=== PATIENT | male | born 1940 | race Caucasian/White ===

== ENCOUNTER 2017-08-04 08:50 | Emergency (ER) | payer MEDICARE ==
--- NOTE | 2017-08-04 11:17 | RAD ---
LEFT SHOULDER 3 VIEWS: HISTORY: A 77-year-old male with a history of left shoulder pain since this morning. Bilateral shoulder repla cements 10 years ago. COMPARISON: Chest 1 view 02/24/16, PET CT scan 08/01/16. FINDINGS: There are status post left shoulder replacement changes. There is marked abnormal widening of the sh oulder joint space with some tiny calcific opacity changes within this widened space. This widened s pace has markedly worsened from the 2016 study and the fairly extensive destructive changes of the sc apula and glenoid as well as the medial aspect of the proximal humeral shaft were all present at the time of the 08/01/[address] scan. This area in the shoulder demonstrated marked abnormal increased ac tivity. No evidence for acute fracture or dislocation. IMPRESSION: Markedly abnormal left shoulder with total humeral head replacement changes with marked destructive c hanges of the glenoid and scapula as well as the medial aspect of the proximal humerus with some tiny calcific foci within this abnormally widened space, probably secondary to particle disease or other post-prosthesis complication which is certainly favored over infection given the longstanding chronic ity of this. There is no acute fracture or dislocation. Orthopedic followup is certainly recommende d in this regard. POS: [facility]
== END 2017-08-04 10:55 | disposition home or self-care (01) ==
LOC: SCSER 08:50
DX: T84.89XA Other specified complication of internal orthopedic prosthetic devices, implants and grafts, initial encounter (principal); G89.29 Other chronic pain; I10 Essential (primary) hypertension; F41.9 Anxiety disorder, unspecified; F32.9 Major depressive disorder, single episode, unspecified; Z87.891 Personal history of nicotine dependence
CPT/HCPCS: 96374; 96376; J2270

== ENCOUNTER 2017-08-11 16:35 | Emergency (ER) | payer MEDICARE ==
[2017-08-11] MEDS ORDERED: HYDROcodone/Acetaminophen 10/325 mg Tablet ONE (17:06)
--- NOTE | 2017-08-11 18:50 | RAD ---
LEFT SHOULDER THREE VIEWS: 08/11/17 HISTORY: Left shoulder pain. History of previous surgery. COMPARISON: A 08/04/17 examination. Postoperative changes with placement of a left humeral prosthesis is noted. There is chronic appearin g destructive change involving the glenoid which at this point is essentially absent. Surgical clips are seen in this region. The space between the bone and humeral component of the prosthesis is widene d. This would suggest that there is some underlying effusion present. Overall appearance is stable as compared to the 08/04/17 study. IMPRESSION: Left humeral prosthesis in place. The lytic bony change along the medial aspect of the proximal humer al shaft and the chronic appearing destructive bony changes of the glenoid with a widened glenohumera l joint space are all stable findings as compared to the prior exam. These changes could indicate chr onic synovial changes. Underlying infection is not excluded. The possibility that the widened space i s related to joint effusion should be considered but it appears to be a fairly chronic finding as dis cussed in the previous report. The widening to the joint space was also seen on a previous PET scan d one in July. POS: [facility]
== END 2017-08-11 18:15 | disposition home or self-care (01) ==
LOC: SCSER 16:35
DX: M25.512 Pain in left shoulder (principal); F41.9 Anxiety disorder, unspecified; I10 Essential (primary) hypertension; F32.9 Major depressive disorder, single episode, unspecified; Z77.22 Contact with and (suspected) exposure to environmental tobacco smoke (acute) (chronic); Z79.891 Long term (current) use of opiate analgesic

== ENCOUNTER 2017-08-31 08:38 | Outpatient (CLI) | payer MEDICARE ==
--- NOTE | 2017-08-31 13:37 | RAD ---
FLUOROSCOPIC GUIDED RIGHT SHOULDER JOINT ASPIRATION. CLINICAL HISTORY: Pain. History of prior right shoulder arthroplasty placement. RADIATION EXPOSURE DATA: 3 mGy*^m2, 0.2 minutes intermittent fluoroscopy. PROCEDURE: Informed consent was obtained. The patient was escorted to the procedure suite and customer account administrator imaging of the right shoulder was performed. Topical anesthesia was achieved with buffered 1% Lidocaine following appropriate standard sterile pre pping and draping of the right shoulder. Uneventful accessed into the right shoulder joint was achie rebeca with a 22 gauge needle under fluorosocpic guidance which yielded approximately 4 cc of opaque amb er-colored, turbid aspirate. This was placed into a sealed sterile container and sent [facility] the [facility] further [facility]. Imaging was stored for documentation. The needle was removed from the pat ient. There were no procedural complications. FINDINGS: [facility] imaging of the right shoulder reveals evidence of osseous lucency within the region of the scap ular glenoid which is expanded as a result with a surrounding sclerotic rim. The right humeral prost hesis is high-riding and underlies the undersurface of the acromion within approximately 3-4 mm. Par tially imaged right chest port is present. IMPRESSION: Technically successful fluoroscopic-guided right shoulder joint aspiration yielding aspirate as discu ssed above which was sent to the laboratory for further analysis. POS: [facility]
--- NOTE | 2017-08-31 13:41 | RAD ---
FLUOROSCOPIC GUIDED LEFT SHOULDER JOINT ASPIRATION. CLINICAL HISTORY: Left shoulder pain. Prior prosthesis of the left shoulder with clinical concern for infection. RADIATION EXPOSURE DATA: 3 mGy*^m2; 0.2 minutes intermittent fluoroscopy. PROCEDURE: Informed consent was obtained. The patient was escorted to the procedural suite. [facility] imaging of t he left shoulder was performed. Standard sterile prepping and draping of the left shoulder was perfo rmed followed by topical anesthesia achieved with buffered 1% Lidocaine. A 22-gauge needle was then advanced uneventfully into the left shoulder joint confirmed fluoroscopically. Approximately 3 cc of turbid dark maroon aspirate was obtained. This was placed into a sealed sterile container and sent to the laboratory for further analysis. The needle was removed. No procedural complication is prese nt. Imaging was stored for documentation. FINDINGS: [facility] imaging was performed which reveals abnormal focal lucency of the proximal metaphysis of the me dial left humerus. There is abnormal space located between the humeral head prosthesis and the nativ e proximal humeral metaphysis. There is also abnormal irregularity and lucency with surrounding scle rosis and splaying of the scapular glenoid. The glenoid component of the prosthesis is abnormally el evated. IMPRESSION: Technically successful left shoulder joint aspiration yielding aspiration sample as discussed above. This was sent to the laboratory for further analysis. Laboratory results are pending. POS: [facility]
== END 2017-08-31 08:39 | disposition home or self-care (01) ==
LOC: RAD 08:38
DX: T84.84XA Pain due to internal orthopedic prosthetic devices, implants and grafts, initial encounter (principal); Z96.611 Presence of right artificial shoulder joint; Z96.612 Presence of left artificial shoulder joint
CPT/HCPCS: 20610; 77002; 87070; 87205

== ENCOUNTER 2018-01-09 11:23 | Observation (INO) | payer MEDICARE ==
[2018-01-09 12:18] LABS: Mean Corpuscular HGB CONC 35.5 g/dL (32.0-36.0); Mean Corpuscular Hemoglobin 31.7 pg (27.0-31.0); Mean Corpuscular Volume 89.3 fL (78.0-98.0); Platelet Count 196 thou/uL (130-400); RBC Distribution Width 12.8 % (11.5-14.5); Red Blood Cell (RBC) Count 4.12 mill/uL (4.70-6.10); White Blood Cell (WBC) Count 4.8 thou/uL (4.8-10.8)
[2018-01-09 12:54] LABS: Band 2 % (5-11); Eosinophils 6 % (0-10); Lymphocytes 24 % (21-51); MDiff Complete? YES; Monocytes 10 % (0-10); Neutrophil 58 % (42-75); RBC Morphology Normal
[2018-01-09 14:36] LABS: Bilirubin Negative (Negative); Blood, Urine Negative (Negative); Clarity CLEAR (Clear); Glucose, Urine (Dipstick) Negative (Negative); Leukocyte Negative (Negative); Nitrite Negative (Negative); Protein, Urine (Dipstick) Negative (Neg-Trace); Specific Gravity, Urine 1.023 (1.002-1.036); Urobilinogen 0.2 mg/dL (0.2-1.0)
[2018-01-09 14:49] LABS: PTT 24.5 SEC (22.9-36.1)
[2018-01-09 14:54] LABS: Prothrombin Time 12.9 SEC (12.0-14.7)
[2018-01-09] MEDS ORDERED: Acetaminophen 325 MG TAB PO PRN (16:32)
[2018-01-09] MEDS ORDERED: Ondansetron ODT 4 MG TAB SL PRN (16:32)
[2018-01-09] MEDS ORDERED: Ondansetron HCl/PF 4 MG/2 ML Vial IVP PRN ×2 (16:32→23:10)
[2018-01-09] MEDS ORDERED: Fleet Enema 133 ML BOT PR SCH (17:00)
[2018-01-09 17:18] LABS: Hemoglobin 13.1 g/dL (14.0-18.0)
[2018-01-09 17:28] VITALS: BMI 31.6
[2018-01-09] MEDS ORDERED: Promethazine HCl 25 MG/ML VIAL IM PRN (23:10)
[2018-01-09] MEDS ORDERED: Promethazine HCl 25 MG/ML VIAL SLOW IVP PRN (23:10)
[2018-01-09] MEDS ORDERED: GoLYTELY 4,000 ml Bottle PO SCH (23:15)
--- NOTE | 2018-01-10 00:01 | HP ---
DATE OF ADMISSION: 01/09/2018 REASON FOR ADMISSION: Bloody stools. HISTORY OF PRESENT ILLNESS: Mr. Cifuentes is a 77-year-old male who underwent an outpatient colonoscopy with polypectomies for history of numerous polyps. He had 3 large polyps removed by history. He di d well after getting home and ate his usual dinner. Overnight, he began passing bloody stool and harlan ts, described as mostly bright red blood. He had a total of 12 episodes of bloody bowel movements, l ast one approximately 5-1/2 hours ago. He denies having any abdominal pain or discomfort. There is no nausea or vomiting. There are no orthostatic symptoms, dizziness, lightheadedness, or syncope. H e denies any nausea or vomiting. His current vitals are normal with blood count showed hemoglobin of 13 g/dL. PAST MEDICAL HISTORY: 1. History non-Hodgkin's lymphoma in remission. 2. Hypertension. 3. Hyperlipidemia. 4. Benign prostatic hypertrophy. 5. Osteoarthritis. 6. History of laparoscopic laparotomy for mass biopsy. 7. Status post incisional hernia repair with mesh placement. ALLERGIES: STATINS. SOCIAL HISTORY: Patient is . He has no tobacco or alcohol usage. FAMILY HISTORY: Negative for any known GI problem, liver disease, GI malignancy. MEDICATIONS: Include venlafaxine 75 mg at bedtime, tamsulosin 0.5 mg at bedtime, Rituxan chemo, Pril osec OTC 20 mg every day, meloxicam at bedtime, magnesium oxide ____ daily, aspirin 81 mg every day, tramadol 50 mg t.i.d. p.r.n. REVIEW OF SYSTEMS: Ten-point review of systems did not show any other pertinent positive or negative . PHYSICAL EXAMINATION: VITAL SIGNS: Temperature 98.3, blood pressure 119/65, pulse of 82. GENERAL: He is alert, conversant, in no distress. HEENT: Shows anicteric sclerae. Oropharynx clear. NECK: Supple. CARDIOVASCULAR: Shows normal S1, S2. Regular rate and rhythm. CHEST: Shows breath sounds. ABDOMEN: Protuberant but soft, nontender. He has active bowel sounds. Organomegaly, difficult to a ssess secondary to size. EXTREMITIES: Shows no edema. LABORATORY DATA: WBC is 4.8, hemoglobin 13.0, platelet count 196. INR 1.0, PT 12.9, PTT 24.5. ASSESSMENT: 1. Hematochezia, likely from post-polypectomy site bleed. He is doing well with normal vitals and b lood count at this point. 2. History of numerous colon polyps before with 3 polyps removed yesterday. 3. Non-Hodgkin's lymphoma, reportedly in remission. 4. Hypertension. 5. Hyperlipidemia. PLAN: 1. We will admit. 2. Serial blood count monitoring. 3. Colonoscopy to elucidate site of bleeding and to control if necessary. Indications including ris k discuss with Mr. Cifuentes and his . All questions answered.
[2018-01-10] MEDS ORDERED: Ondansetron HCl/PF 4 MG/2 ML Vial IVP PRN (00:34)
[2018-01-10] MEDS ORDERED: Ondansetron ODT 4 MG TAB SL PRN (00:35)
[2018-01-10] MEDS ORDERED: Acetaminophen 325 MG TAB PO PRN (00:35)
[2018-01-10] MEDS: Sodium Chloride 0.9% 1,000 ML IV SCH ×3 (00:45→16:02)
[2018-01-10] MEDS ORDERED: Fleet Enema 133 ML BOT PR SCH (00:45)
--- NOTE | 2018-01-10 04:04 | OP ---
DATE OF SERVICE: 01/09/2018 PROCEDURE: Attempted colonoscopy. SURGEON: Zoltan Argueta M.D. ANESTHESIA: Medication given per Anesthesiology Department. PREPROCEDURE DIAGNOSES: Hematochezia, status post snare polypectomy yesterday. POSTOPERATIVE DIAGNOSES: 1. Incomplete visualization throughout the colon with retained soft bloody stool and bloody effluent. 2. Sigmoid diverticulosis. PROCEDURE IN DETAIL: A written consent was obtained prior to procedure. After adequate sedation, re ctal exam performed was normal. Endoscope was advanced to the transverse colon. There is still larg e amount of retained soft reddish-stool with brownish-bloody effluent throughout. Polypectomy sites were not visualized. There was incomplete visualization because of inadequate prep. The instrument was slowly removed. Patient tolerated the procedure well. ASSESSMENT: Inadequate visualization, unable to locate polypectomy sites. PLAN: We will bowel prep tonight with repeat colonoscopy tomorrow.
[2018-01-10 05:49] LABS: Anion Gap 13 mmol/L (10-20); BUN (Urea Nitrogen) 18 mg/dL (8.4-25.7); Calc. Creatinine Clearance 104 mL/min (70-130); Calcium 8.9 mg/dL (7.8-10.44); Carbon Dioxide 28 mmol/L (23-31); Chloride 104 mmol/L (98-107); Estimated GFR-MDRD Greater than 90; Glucose 100 mg/dL (83-110); Potassium 3.5 mmol/L (3.5-5.1); Sodium 141 mmol/L (136-145)
[2018-01-10 06:15] LABS: Band 10 % (5-11); Eosinophils 6 % (0-10); Hemoglobin 12.3 g/dL (14.0-18.0); Lymphocytes 2 % (21-51); MDiff Complete? YES; Mean Corpuscular HGB CONC 35.9 g/dL (32.0-36.0); Mean Corpuscular Volume 89.1 fL (78.0-98.0); Mean Platelet Volume 7.8 fL (7.4-10.4); Monocytes 16 % (0-10); Neutrophil 64 % (42-75); PLT Morphology Comment Appears Adequate; Platelet Count 187 thou/uL (130-400); RBC Distribution Width 12.6 % (11.5-14.5); Red Blood Cell (RBC) Count 3.83 mill/uL (4.70-6.10); White Blood Cell (WBC) Count 5.1 thou/uL (4.8-10.8)
[2018-01-10 11:22] VITALS: TEMP 98.2
[2018-01-10] MEDS ORDERED: PROPOFOL 200 MG/20 ML VIAL ONE (14:53)
[2018-01-10] MEDS ORDERED: Lidocaine 1% PF 5 ML VIAL ONE (14:53)
[2018-01-10 18:12] VITALS: BP 111/68
[2018-01-10] MEDS ORDERED: Tamsulosin HCl 0.4 MG CAP PO SCH (21:00)
--- NOTE | 2018-01-11 02:12 | OP ---
DATE OF SERVICE: 01/10/2018 PREPROCEDURE DIAGNOSIS: Post-polypectomy bleed POSTPROCEDURE DIAGNOSES: 1. Post-polypectomy bleed, resolved. 2. The polypectomy sites were found with high risk stigmata for rebleeding and Hemoclips were placed x2, one in the ascending colon and one in the transverse. RECOMMENDATIONS: Advance diet. The patient is doing well, when he gets upstairs he will be discharged home. ANESTHESIA: TIVA. PROCEDURE IN DETAIL: After the patient was informed of the risks, benefits, and possible complications of endoscopy including perforation, bleeding, reaction to medication, and aspiration, informed consent was obtained. The patient was brought to endoscopy suite where he was sedated in gradual fashion. Once he was comfortable, rectal exam was performed and endoscope was advanced in the anal canal, through the colon to the cecum which was identified by the ileocecal valve and appendiceal orifice. There was clear bile throughout the colon. There was no active bleeding or old blood in the colon. Terminal ileum was entered and found to be normal. Two polypectomy sites were identified, one in the ascending colon and one in the transverse colon, both had red esteves desai in the base and one had a visible vessel. Both were clipped to prevent any further bleeding, although there was no active bleeding or clot on them at this time. The third polypectomy site was not identified. Retroflexed views in the rectum were normal. The scope was removed. The patient tolerated the procedure well with no complications. [facility]
== END 2018-01-10 18:50 | disposition home or self-care (01) ==
LOC: ERS 11:23 → SURG A 16:34
PROVIDERS: ADMIT Internal Medicine Gastroenterology; ATTEND Internal Medicine Gastroenterology
PROC: 0W3P8ZZ Control Bleeding in Gastrointestinal Tract, Via Natural or Artificial Opening Endoscopic (ICD-10-PCS; principal; 2018-01-09)
PROC: 0DJD8ZZ Inspection of Lower Intestinal Tract, Via Natural or Artificial Opening Endoscopic (ICD-10-PCS; 2018-01-10)
DX: K91.89 Other postprocedural complications and disorders of digestive system (principal); I10 Essential (primary) hypertension; E78.5 Hyperlipidemia, unspecified; N40.0 Benign prostatic hyperplasia without lower urinary tract symptoms; C85.90 Non-Hodgkin lymphoma, unspecified, unspecified site; Z88.8 Allergy status to other drugs, medicaments and biological substances; Z79.899 Other long term (current) drug therapy
CPT/HCPCS: 45378; 45382; 80048; 81003; 85014; 85018; 85025 ×2; 85610; 85730; 86850 ×2; 86900; 86901; 96360; 96361; 99284; G0378; 36415; J1642; J2001; J2704

== ENCOUNTER 2018-12-18 08:29 | Outpatient (CLI) | payer MEDICARE ==
[2018-12-18] MEDS ORDERED: Iopamidol 300 61% 100 ML VIAL FS ONE (09:00)
--- NOTE | 2018-12-18 11:07 | CT ---
CT ABDOMEN AND PELVIS WITH IV CONTRAST 12/18/2018 CLINICAL INFORMATION: Follicular lymphoma grade 2. Follow-up evaluation. COMPARISON: PET/CT exam on 08/01/[address] abdomen and pelvis on 04/25/2016. Technique: Multiple contiguous axial CT images are obtained through the abdomen and pelvis with IV contrast. Cor onal reformatted images are provided. FINDINGS: Lower Chest: There is stable partial visualization of an approximately 4 mm pleural-based nodular den sity at the posterolateral right lung base. No additional discrete pulmonary nodule or mass is seen. Vessels: Vascular calcifications are seen in the abdominal aorta and iliac arteries. Abdomen: Portal vein:Patent Gallbladder: Within normal limits for CT imaging. Liver: within normal limits. Spleen: within normal limits. Pancreas: within normal limits. Adrenals: within normal limits. Kidneys: within normal limits. Bowel: There is colonic diverticulosis. Loops of small bowel are normal in caliber. Appendix: The appendix is visualized and normal in caliber. Peritoneum: No ascites or free air; no fluid collection. Mesentery and Retroperitoneum: There is a german inflammatory stranding seen within the central mesent kale. However, this has improved compared to the study in 2016 and minimally improved when compared to study in 2017. No discrete measurable mass is present in this region. No enlarged lymph nodes are seen by CT size criteria. There was a prominent aortocaval lymph node seen on prior studies measuring 12 mm in short axis dimension. This lymph node has decreased in size and now measures much less than 1 cm in short axis dimension. Abdominal Wall: Midline scarring. Pelvis: Reproductive Organs: Mild nonspecific heterogeneity of the prostate gland which is a stable finding. Pelvis within normal limits. Bladder: within normal limits. Bones: Multilevel degenerative changes are seen in the spine with severe right hip osteoarthritis. Os teoarthritis right hip has progressed when compared to prior exam. IMPRESSION: 1. Stable german inflammatory stranding in the central mesentery, but this has improved when compared to the study in 2015 with minimal improvement compared to prior PET/CT examination in 2017. No enlarged lymph nodes are seen within the abdomen or pelvis. 2. Stable 4 mm pulmonary nodule right lung base. 3. Colonic diverticulosis. 4. Progression in osteoarthritis right hip.
== END 2018-12-18 08:30 | disposition home or self-care (01) ==
LOC: SCSCT 08:29
PROVIDERS: ATTEND Internal Medicine Hematology & Oncology
DX: C82.18 Follicular lymphoma grade II, lymph nodes of multiple sites (principal); R91.8 Other nonspecific abnormal finding of lung field; K57.30 Diverticulosis of large intestine without perforation or abscess without bleeding; M16.11 Unilateral primary osteoarthritis, right hip
CPT/HCPCS: 74177; 82565

== ENCOUNTER 2019-06-02 14:39 | Outpatient (CLI) | payer MEDICARE ==
--- NOTE | 2019-06-02 15:08 | RAD ---
RIGHT HIP 2 VIEWS: Date: 06/02/19 HISTORY: Osteoarthritis, right hip pain. FINDINGS: There are osteoarthritic changes manifested by osteophyte formation, joint space narrowing, subchondr al sclerosis, and subchondral cyst formation. No fracture or dislocation is seen. IMPRESSION: Right hip osteoarthritis. POS: [facility]
--- NOTE | 2019-06-02 15:43 | MRI ---
MRI lumbar spine noncontrast HISTORY: Low back pain. Spinal stenosis. FINDINGS: Vertebral body heights and alignment are maintained. There is desiccation of all of the int ervertebral discs and prominent multilevel discogenic endplate changes throughout the bone marrow. T12-L1: Mild disc bulge. Osteophytosis of the facets. Thecal sac and neural foramina remain patent. L1-2: Disc space narrowing. Posterior disc bulge and circumferential degenerative changes. Severe jessica nosis of the central canal. Moderate right and severe left foraminal stenoses. L2-3: Disc space narrowing. Mild posterior disc bulge. Circumferential degenerative changes. Moderate to severe stenosis of the central canal and each neural foramen. L3-4: Complete loss of disc space height. Posterior disc bulge and circumferential degenerative murray es. Severe stenosis of the central canal and each neural foramen, right greater than left. L4-5: Complete loss of disc space height. Prominent posterior central disc protrusion. Circumferentia l degenerative changes. Severe stenosis of the central canal and each neural foramen, left greater than right. L5-S1: Loss of disc space height. Posterior disc protrusion. Thecal sac remains patent. Right lateral protrusion of the disc encroaches upon the right L5 nerve root. There is also osseous hypertrophy of the facets. Severe right and moderate left foraminal stenoses. IMPRESSION: Prominent multilevel degenerative changes throughout the lumbar spine, including severe c entral canal and foraminal stenoses as detailed above.
== END 2019-06-02 14:40 | disposition home or self-care (01) ==
LOC: SCSMRI 14:39
PROVIDERS: ATTEND Anesthesiology Pain Medicine
DX: M48.062 Spinal stenosis, lumbar region with neurogenic claudication (principal); M47.26 Other spondylosis with radiculopathy, lumbar region; M16.11 Unilateral primary osteoarthritis, right hip; M48.07 Spinal stenosis, lumbosacral region
CPT/HCPCS: 72148

== ENCOUNTER 2020-01-21 09:20 | Outpatient (CLI) | payer MEDICARE ==
--- NOTE | 2020-01-21 11:34 | CT ---
CT ABDOMEN WITH CONTRAST CT PELVIS WITH CONTRAST: DATE: 01/21/2020 HISTORY: 79-year-old male with ICD-10: C 82.18 follicular lymphoma grade 2, lymph nodes of multiple sites. R 11.0 nausea. Z 51.11 encounter for antineoplastic chemotherapy. Follow-up. COMPARISON: 12/18/2018 TECHNIQUE: IV injection of iodinated contrast media: administered. Oral contrast media:Administered FINDINGS: German mesentery unchanged. Multiple small periaortic, mostly subcentimeter lymph nodes, unchanged. The largest is an approximately 0.7 x 1.9 x 1.8 cm lymph node to the left of the aorta at the level o f the SMA origin, unchanged. Fatty liver. Normal pancreas, adrenals, kidneys, spleen, appendix, and urinary bladder. Further interval collapse of the right femoral head, and further interval worsening of size and numbe r of multiple right hip subchondral cysts. Severe joint space narrowing at superior aspect of hip joint. No pleural effusion or consolidation at lung bases. Numerous diverticula throughout sigmoid and descending colon. No ascites or pneumoperitoneum. No small bowel dilation. Lumbar spondylosis. No interval change other than the right hip. 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 2) no interval change in the contents of the abdominal cavity and pelvic cavity, including german mese ntery and slightly prominent retroperitoneal lymph nodes. 3) hepatic steatosis. 4) colonic diverticulosis 5) spondylosis.
== END 2020-01-21 09:21 | disposition home or self-care (01) ==
LOC: SCSCT 09:20
PROVIDERS: ATTEND Internal Medicine Hematology & Oncology
DX: C82.18 Follicular lymphoma grade II, lymph nodes of multiple sites (principal); K57.30 Diverticulosis of large intestine without perforation or abscess without bleeding; R59.0 Localized enlarged lymph nodes; M47.816 Spondylosis without myelopathy or radiculopathy, lumbar region; K76.0 Fatty (change of) liver, not elsewhere classified; M87.9 Osteonecrosis, unspecified
CPT/HCPCS: 74177

== ENCOUNTER 2023-02-28 07:31 | Observation (INO) | payer MEDICARE ==
[2023-02-28 08:19] LABS: #Basophils 0.1 thou/uL (0.0-0.2); #Eosinphils 0.1 thou/uL (0.0-0.7); #Monocytes 0.6 thou/uL (0.11-0.59); #Neutrophils 9.3 thou/uL (1.40-6.50); %Basophils 0.5 % (0.0-1.0); %Eosinophils 0.5 % (0.0-10.0); %Lymphocytes 7.4 % (21.0-51.0); %Monocytes 5.8 % (0.0-10.0); %Neutrophils 85.3 % (42.0-75.0); Hematocrit 45.3 % (42.0-52.0); Hemoglobin 15.9 g/dL (14.0-18.0); Mean Corpuscular HGB CONC 35.1 g/dL (32.0-36.0); Mean Corpuscular Hemoglobin 31.5 pg (27.0-31.0); Mean Corpuscular Volume 89.7 fl (78.0-98.0); Mean Platelet Volume 10.7 fL (7.4-10.4); Platelet Count 265 10x3/uL (130-400); RBC Distribution Width 12.8 % (11.5-14.5); Red Blood Cell (RBC) Count 5.05 mill/uL (4.70-6.10); White Blood Cell (WBC) Count 10.9 10x3/uL (4.8-10.8)
[2023-02-28 08:41] LABS: ALT (SGPT) 24 U/L (8-55); AST (SGOT) 28 U/L (5-34); Albumin 4.6 g/dL (3.4-4.8); Alkaline Phosphatase 48 U/L (40-110); Anion Gap 12 mmol/L (10-20); BUN (Urea Nitrogen) 18 mg/dL (8.4-25.7); Bilirubin, Total 0.5 mg/dL (0.2-1.2); Calc. Creatinine Clearance 0 mL/min (70-130); Calcium 10.8 mg/dL (7.8-10.44); Carbon Dioxide 31 mmol/L (23-31); Chloride 100 mmol/L (98-107); Estimated GFR 55; Glucose 150 mg/dL (83-110); Lipase 16 U/L (8-78); Potassium 4.2 mmol/L (3.5-5.1); Protein, Total 7.6 g/dL (5.8-8.1); Sodium 139 mmol/L (136-145)
[2023-02-28 08:45] LABS: Troponin I 0.036 ng/mL (< 0.028)
[2023-02-28] MEDS ORDERED: Ondansetron PF 4 MG/2 ML Vial ONE (09:17)
[2023-02-28] MEDS ORDERED: Iopamidol-370 76% 500 ML MDV (1 ML CHARGE) ONE (09:22)
[2023-02-28] MEDS ORDERED: Aspirin Chewable 81 MG TAB ONE ×2 (09:33→09:34)
[2023-02-28] MEDS ORDERED: Acetaminophen 325 MG TAB PO PRN (11:11)
[2023-02-28] MEDS ORDERED: hydrALAZINE 20 MG/ML VIAL SLOW IVP PRN (11:11)
[2023-02-28] MEDS ORDERED: Ondansetron PF 4 MG/2 ML Vial IVP PRN (11:11)
[2023-02-28] MEDS ORDERED: Sodium Chloride 0.65% Nasal 44 ML BOT EA NARE PRN (11:11)
[2023-02-28] MEDS ORDERED: Benzonatate 100 MG CAP PO PRN (11:11)
[2023-02-28] MEDS ORDERED: Artificial Tear Sol 15 ML BOT EA EYE PRN (11:11)
[2023-02-28] MEDS ORDERED: Labetalol HCl 100 MG/20 ML VIAL SLOW IVP PRN (11:11)
[2023-02-28] MEDS ORDERED: Moisturizing Cream (Eucerin) 113 GM JAR TOP PRN (11:11)
[2023-02-28] MEDS ORDERED: diphenhydrAMINE 50 MG/ML VIAL IVP PRN (11:11)
[2023-02-28] MEDS ORDERED: Lactated Ringer's 250 ML IV SCH (11:15)
[2023-02-28 12:57] LABS: Troponin I 0.014 ng/mL (< 0.028)
[2023-02-28] MEDS: Lactated Ringer's 1,000 ML IV SCH ×2 (13:04→20:52)
[2023-02-28 13:15] VITALS: BMI 31.3
[2023-02-28 16:18] LABS: Troponin I Less than 0.010 ng/mL (< 0.028)
[2023-03-01] MEDS: Lactated Ringer's 1,000 ML IV SCH (05:46)
[2023-03-01 08:15] VITALS: BP 185/78; TEMP 99.3
[2023-03-01 09:37] LABS: Anion Gap 14 mmol/L (10-20); BUN (Urea Nitrogen) 14 mg/dL (8.4-25.7); Calc. Creatinine Clearance 65 mL/min (70-130); Calcium 10.7 mg/dL (7.8-10.44); Carbon Dioxide 25 mmol/L (23-31); Chloride 103 mmol/L (98-107); Estimated GFR 65; Glucose 103 mg/dL (83-110); Potassium 4.1 mmol/L (3.5-5.1); Sodium 138 mmol/L (136-145)
== END 2023-03-01 11:31 | disposition home or self-care (01) ==
LOC: ERS 07:31 → ERHOLD 10:35 → T4-B 12:56
PROVIDERS: ADMIT Family Medicine; ATTEND Internal Medicine
DX: R10.9 Unspecified abdominal pain (principal); I10 Essential (primary) hypertension; K56.609 Unspecified intestinal obstruction, unspecified as to partial versus complete obstruction; Z98.890 Other specified postprocedural states; Z88.8 Allergy status to other drugs, medicaments and biological substances; Z91.030 Bee allergy status; Z88.5 Allergy status to narcotic agent; Z79.82 Long term (current) use of aspirin; Z79.899 Other long term (current) drug therapy
CPT/HCPCS: 36415; 74018; 74177; 80048; 80053; 83690; 84484; 85025; 93005; 96361; 96374; J2405; J7120; Q9967

== ENCOUNTER 2023-03-04 14:02 | Inpatient (IN) | payer MEDICARE ==
[~2023-03-04 14:02] MED LIST: Iopamidol-370 76% 500 ML MDV (1 ML CHARGE) ONE
[2023-03-04 14:39] LABS: Hematocrit 39.3 % (42.0-52.0); Hemoglobin 13.9 g/dL (14.0-18.0); Mean Corpuscular HGB CONC 35.4 g/dL (32.0-36.0); Mean Corpuscular Hemoglobin 31.4 pg (27.0-31.0); Mean Corpuscular Volume 88.9 fl (78.0-98.0); Mean Platelet Volume 10.8 fL (7.4-10.4); Platelet Count 222 10x3/uL (130-400); RBC Distribution Width 12.6 % (11.5-14.5); Red Blood Cell (RBC) Count 4.42 mill/uL (4.70-6.10); White Blood Cell (WBC) Count 7.7 10x3/uL (4.8-10.8)
[2023-03-04 14:40] LABS: Delete Auto Diff?? YES; Manual Diff?? YES
[2023-03-04 15:01] LABS: ALT (SGPT) 79 U/L (8-55); AST (SGOT) 61 U/L (5-34); Albumin 4.1 g/dL (3.4-4.8); Alkaline Phosphatase 47 U/L (40-110); Anion Gap 14 mmol/L (10-20); BUN (Urea Nitrogen) 28 mg/dL (8.4-25.7); Calc. Creatinine Clearance 0 mL/min (70-130); Calcium 9.2 mg/dL (7.8-10.44); Carbon Dioxide 27 mmol/L (23-31); Chloride 95 mmol/L (98-107); Estimated GFR 38; Globulin 2.8 g/dL (2.4-3.5); Glucose 108 mg/dL (83-110); Potassium 3.9 mmol/L (3.5-5.1); Protein, Total 6.9 g/dL (5.8-8.1); Sodium 132 mmol/L (136-145)
[2023-03-04 15:02] LABS: Band 50 % (5-11); Burr Cells SLIGHT = 2-5 cells HPF (0-1); CellaVision Operator ID LAB.MJL; Dohle Bodies SLIGHT; Large Platelets 18.4 % (0-5); Lymphocytes 4 % (21-51); Metamyelocyte 5 % (0-0); Monocytes 15 % (0-10); Neutrophil 26 % (42-75); Platelet Adequacy Comment Platelets Normal; Polychromasia SLIGHT = 2-3 cells HPF (0-2); Reflex for Review?? YES; Total Cell Count 103; Vacuoles SLIGHT
[2023-03-04] MEDS ORDERED: Ondansetron PF 4 MG/2 ML Vial ONE (15:23)
[2023-03-04] MEDS ORDERED: cefTRIAXone (ROCEPHIN) 2 GM VIAL ONE (16:04)
[2023-03-04] MEDS ORDERED: metroNIDAZOLE 500 MG/100 ML BAG ONE (16:05)
[2023-03-04] MEDS ORDERED: hydrALAZINE 20 MG/ML VIAL SLOW IVP PRN (17:04)
[2023-03-04] MEDS ORDERED: Ondansetron PF 4 MG/2 ML Vial IVP PRN ×2 (17:04→20:47)
[2023-03-04] MEDS ORDERED: Sodium Chloride 0.9% 1,000 ML IV SCH (17:15)
[2023-03-04] MEDS ORDERED: Acetaminophen 325 MG TAB PO SCH (17:15)
[2023-03-04] MEDS ORDERED: fentaNYL 50 mcg/mL 1 mL Vial ONE (19:21)
[2023-03-04] MEDS ORDERED: Calcium Carbonate 500 MG ChewTAB PO PRN (20:47)
[2023-03-04] MEDS ORDERED: Ondansetron ODT 4 MG TAB PO PRN (20:47)
[2023-03-04] MEDS ORDERED: Magnesium Oxide 400 MG TAB PO SCH (21:00)
[2023-03-04] MEDS ORDERED: Senokot S 8.6-50 MG TAB PO SCH (21:00)
[2023-03-04 21:31] LABS: Bacteria/HPF None Seen HPF (None Seen); Bilirubin Negative (Negative); Blood, Urine 1+ (Negative); CAUTI Indications for Culture Pelvic or flank pain; Clarity Clear (Clear); Glucose, Urine (Dipstick) Normal (Negative); Ketone, Urine Negative (Negative); Leukocyte Negative Leu/uL (Negative); Nitrite Negative (Negative); Protein, Urine (Dipstick) Negative (Neg-Trace); RBC/HPF 0-3 HPF (0-3); Specific Gravity, Urine 1.031 (1.002-1.036); Squamous Epithelial None Seen HPF (0-3); Urobilinogen Normal mg/dL (Less than 2); WBC/HPF 0-3 HPF (0-3)
[2023-03-04 21:32] LABS: Urine Culture Reflex No No
[2023-03-04] MEDS: Dextrose 5%-Lactated Ringers 1,000 ML IV SCH (22:39)
[2023-03-04] MEDS: Famotidine/PF 20 mg/2ml Vial SLOW IVP SCH (22:40)
[2023-03-04] MEDS: Famotidine 20 MG TAB PO SCH (22:40)
[2023-03-04] MEDS: Aspirin 81 mg Enteric Coated Tablet PO SCH (22:40)
[2023-03-04] MEDS: Tamsulosin HCl 0.4 MG CAP PO SCH (22:40)
[2023-03-05 00:50] VITALS: BMI 30.4
[2023-03-05] MEDS ORDERED: HYDROmorphone 0.5 MG/0.5 ML SYRINGE SLOW IVP SCH (02:45)
[2023-03-05 05:27] LABS: Hematocrit 34.9 % (42.0-52.0); Hemoglobin 12.5 g/dL (14.0-18.0); Mean Corpuscular HGB CONC 35.8 g/dL (32.0-36.0); Mean Corpuscular Hemoglobin 31.7 pg (27.0-31.0); Mean Corpuscular Volume 88.6 fl (78.0-98.0); Mean Platelet Volume 10.9 fL (7.4-10.4); Platelet Count 192 10x3/uL (130-400); RBC Distribution Width 12.8 % (11.5-14.5); Red Blood Cell (RBC) Count 3.94 mill/uL (4.70-6.10); White Blood Cell (WBC) Count 4.4 10x3/uL (4.8-10.8)
[2023-03-05 05:31] LABS: Delete Auto Diff?? YES; Manual Diff?? YES
[2023-03-05 06:01] LABS: Anion Gap 15 mmol/L (10-20); BUN (Urea Nitrogen) 24 mg/dL (8.4-25.7); Calc. Creatinine Clearance 55 mL/min (70-130); Calcium 8.4 mg/dL (7.8-10.44); Carbon Dioxide 24 mmol/L (23-31); Chloride 99 mmol/L (98-107); Estimated GFR 53; Glucose 104 mg/dL (83-110); Potassium 3.3 mmol/L (3.5-5.1); Sodium 135 mmol/L (136-145)
[2023-03-05 06:05] LABS: Band 57 % (5-11); CellaVision Operator ID LAB.CLH1; Large Platelets 10.6 % (0-5); Lymphocytes 14 % (21-51); Monocytes 14 % (0-10); Neutrophil 14 % (42-75); Platelet Adequacy Comment Platelets Normal; Polychromasia SLIGHT = 2-3 cells HPF (0-2); Reactive Lymphocytes 1 % (0-10); Total Cell Count 104
[2023-03-05] MEDS ORDERED: Famotidine 20 MG TAB PO SCH (09:00)
[2023-03-05] MEDS ORDERED: Polyethylene Glycol 3350 17 GM Packet PO SCH (09:00)
[2023-03-05] MEDS: CO Q-10 CAPSULE 100 MG PO SCH (09:33)
[2023-03-05] MEDS ORDERED: fentaNYL 50 mcg/mL 1 mL Vial SLOW IVP PRN (13:05)
[2023-03-05] MEDS ORDERED: MD-Gastroview 120 ML BOT ONE (14:31)
[2023-03-05] MEDS: Aspirin 81 mg Enteric Coated Tablet PO SCH ×2 (18:23→20:49)
[2023-03-05] MEDS: Famotidine/PF 20 mg/2ml Vial SLOW IVP SCH (20:48)
[2023-03-05] MEDS: Tamsulosin HCl 0.4 MG CAP PO SCH (20:50)
[2023-03-06 06:36] LABS: #Basophils 0.1 thou/uL (0.0-0.2); #Eosinphils 0.2 thou/uL (0.0-0.7); #Monocytes 1.2 thou/uL (0.11-0.59); #Neutrophils 4.5 thou/uL (1.40-6.50); %Basophils 0.8 % (0.0-1.0); %Eosinophils 2.9 % (0.0-10.0); %Lymphocytes 10.9 % (21.0-51.0); %Monocytes 17.5 % (0.0-10.0); %Neutrophils 67.3 % (42.0-75.0); Hematocrit 35.9 % (42.0-52.0); Hemoglobin 12.9 g/dL (14.0-18.0); Mean Corpuscular HGB CONC 35.9 g/dL (32.0-36.0); Mean Corpuscular Hemoglobin 31.2 pg (27.0-31.0); Mean Corpuscular Volume 86.9 fl (78.0-98.0); Mean Platelet Volume 10.9 fL (7.4-10.4); Platelet Count 229 10x3/uL (130-400); RBC Distribution Width 12.9 % (11.5-14.5); Red Blood Cell (RBC) Count 4.13 mill/uL (4.70-6.10); White Blood Cell (WBC) Count 6.6 10x3/uL (4.8-10.8)
[2023-03-06 06:46] LABS: Manual Diff?? YES
[2023-03-06 06:58] LABS: Anion Gap 13 mmol/L (10-20); BUN (Urea Nitrogen) 23 mg/dL (8.4-25.7); Calc. Creatinine Clearance 68 mL/min (70-130); Calcium 9.4 mg/dL (7.8-10.44); Carbon Dioxide 27 mmol/L (23-31); Chloride 103 mmol/L (98-107); Estimated GFR 67; Glucose 107 mg/dL (83-110); Potassium 3.1 mmol/L (3.5-5.1); Sodium 140 mmol/L (136-145)
[2023-03-06 07:38] LABS: Band 20 % (5-11); CellaVision Operator ID LAB.GE; Eosinophils 5 % (0-10); Large Platelets 6.9 % (0-5); Lymphocytes 6 % (21-51); Metamyelocyte 1 % (0-0); Monocytes 13 % (0-10); Neutrophil 50 % (42-75); Platelet Adequacy Comment Platelets Normal; Polychromasia SLIGHT = 2-3 cells HPF (0-2); Reactive Lymphocytes 4 % (0-10); Total Cell Count 101
[2023-03-06] MEDS ORDERED: Potassium Chloride 20 MEQ in Premix Bag 1 BAG IVPB SCH (08:00)
[2023-03-06] MEDS: Famotidine 20 MG TAB PO SCH (08:44)
[2023-03-06] MEDS: Aspirin 81 mg Enteric Coated Tablet PO SCH (09:05)
[2023-03-06] MEDS: CO Q-10 CAPSULE 100 MG PO SCH (13:45)
[2023-03-06] MEDS ORDERED: Ketorolac Tromethamine 30 MG/ML VIAL ONE (14:48)
[2023-03-06] MEDS ORDERED: EPINEPHrine 1 MG/ML AMP ONE (15:30)
[2023-03-06] MEDS ORDERED: Bupivacaine 0.25% HCL 30 ML VIAL ONE (15:30)
[2023-03-06] MEDS: Dextrose 5%-Lactated Ringers 1,000 ML IV SCH (16:13)
[2023-03-06] MEDS ORDERED: CEFAZOLIN 2 GM VIAL ONE (16:19)
[2023-03-06] MEDS ORDERED: Sodium Chloride 0.9% 100 ML ONE (16:19)
[2023-03-06] MEDS ORDERED: fentaNYL PF 100 MCG/2 ML SYRINGE ONE (16:22)
[2023-03-06] MEDS ORDERED: Norepinephrine 4 MG/4 ML VIAL ONE (16:23)
[2023-03-06] MEDS ORDERED: Phenylephrine 10 MG/ML VIAL ONE (16:23)
[2023-03-06] MEDS ORDERED: Albumin 5% 500 ML ONE (16:23)
[2023-03-06] MEDS ORDERED: SUGAMMADEX SODIUM 200 MG/2 ML VIAL ONE (16:23)
[2023-03-06] MEDS ORDERED: PROPOFOL 200 MG/20 ML VIAL ONE (16:34)
[2023-03-06] MEDS ORDERED: Dexamethasone 20 MG/5 ML VIAL ONE (16:34)
[2023-03-06] MEDS ORDERED: Lidocaine 1% PF 5 ML VIAL ONE (16:34)
[2023-03-06] MEDS ORDERED: Succinylcholine 200 MG/10 ml SYRINGE FS ONE (16:34)
[2023-03-06] MEDS ORDERED: Labetalol HCl 100 MG/20 ML VIAL ONE (16:34)
[2023-03-06] MEDS ORDERED: Ondansetron PF 4 MG/2 ML Vial ONE (16:34)
[2023-03-06] MEDS ORDERED: Rocuronium Bromide 10 MG/ML (10ML VIAL) ONE (16:34)
[2023-03-06] MEDS ORDERED: Promethazine HCl 25 MG/ML VIAL IM PRN (18:57)
[2023-03-06] MEDS ORDERED: Ondansetron HCl/PF 4 MG/2 ML Vial IVP PRN (18:57)
[2023-03-06] MEDS ORDERED: HYDROmorphone 2 MG/ML VIAL SLOW IVP PRN (18:57)
[2023-03-06] MEDS ORDERED: fentaNYL 50 mcg/mL 1 mL Vial ONE ×2 (19:04→19:24)
[2023-03-06] MEDS: Tamsulosin HCl 0.4 MG CAP PO SCH (20:15)
[2023-03-06] MEDS: Acetaminophen 325 MG TAB PO PRN (20:15)
[2023-03-06] MEDS: Famotidine/PF 20 mg/2ml Vial SLOW IVP SCH (20:16)
[2023-03-07 05:45] LABS: #Basophils 0.1 thou/uL (0.0-0.2); #Monocytes 1.2 thou/uL (0.11-0.59); #Neutrophils 6.9 thou/uL (1.40-6.50); %Basophils 0.7 % (0.0-1.0); %Eosinophils 0.2 % (0.0-10.0); %Lymphocytes 9.8 % (21.0-51.0); %Monocytes 12.7 % (0.0-10.0); %Neutrophils 75.5 % (42.0-75.0); Hematocrit 37.8 % (42.0-52.0); Hemoglobin 13.3 g/dL (14.0-18.0); Mean Corpuscular HGB CONC 35.2 g/dL (32.0-36.0); Mean Corpuscular Hemoglobin 31.2 pg (27.0-31.0); Mean Corpuscular Volume 88.7 fl (78.0-98.0); Mean Platelet Volume 10.9 fL (7.4-10.4); Platelet Count 283 10x3/uL (130-400); RBC Distribution Width 13.2 % (11.5-14.5); Red Blood Cell (RBC) Count 4.26 mill/uL (4.70-6.10); White Blood Cell (WBC) Count 9.2 10x3/uL (4.8-10.8)
[2023-03-07 06:07] LABS: Anion Gap 13 mmol/L (10-20); BUN (Urea Nitrogen) 18 mg/dL (8.4-25.7); Calc. Creatinine Clearance 68 mL/min (70-130); Carbon Dioxide 26 mmol/L (23-31); Chloride 107 mmol/L (98-107); Potassium 3.7 mmol/L (3.5-5.1); Sodium 142 mmol/L (136-145)
[2023-03-07 06:08] LABS: Estimated GFR 67; Glucose 115 mg/dL (83-110)
[2023-03-07] MEDS: CO Q-10 CAPSULE 100 MG PO SCH ×2 (09:35→09:37)
[2023-03-07] MEDS: Acetaminophen 325 MG TAB PO PRN (19:43)
[2023-03-07] MEDS: Famotidine/PF 20 mg/2ml Vial SLOW IVP SCH (19:43)
[2023-03-07] MEDS: Tamsulosin HCl 0.4 MG CAP PO SCH (19:43)
[2023-03-08] MEDS: Acetaminophen 325 MG TAB PO PRN (03:04)
[2023-03-08] MEDS: CO Q-10 CAPSULE 100 MG PO SCH (09:07)
[2023-03-08] MEDS: Tamsulosin HCl 0.4 MG CAP PO SCH (21:15)
[2023-03-08] MEDS: Famotidine/PF 20 mg/2ml Vial SLOW IVP SCH (21:15)
[2023-03-09] MEDS ORDERED: ALPRAZolam 0.5 MG TAB PO SCH (03:00)
[2023-03-09 06:00] LABS: Hematocrit 36.3 % (42.0-52.0); Hemoglobin 12.7 g/dL (14.0-18.0); Mean Corpuscular Hemoglobin 31.4 pg (27.0-31.0); Mean Corpuscular Volume 89.9 fl (78.0-98.0); Mean Platelet Volume 10.4 fL (7.4-10.4); Platelet Count 326 10x3/uL (130-400); RBC Distribution Width 13.2 % (11.5-14.5); Red Blood Cell (RBC) Count 4.04 mill/uL (4.70-6.10); White Blood Cell (WBC) Count 8.7 10x3/uL (4.8-10.8)
[2023-03-09 06:03] LABS: Delete Auto Diff?? YES; Manual Diff?? YES
[2023-03-09 06:27] LABS: ALT (SGPT) 31 U/L (8-55); AST (SGOT) 23 U/L (5-34); Albumin 3.3 g/dL (3.4-4.8); Alkaline Phosphatase 43 U/L (40-110); Anion Gap 12 mmol/L (10-20); BUN (Urea Nitrogen) 8 mg/dL (8.4-25.7); Bilirubin, Total 0.5 mg/dL (0.2-1.2); Calc. Creatinine Clearance 87 mL/min (70-130); Calcium 9.5 mg/dL (7.8-10.44); Carbon Dioxide 27 mmol/L (23-31); Chloride 104 mmol/L (98-107); Estimated GFR 87; Globulin 2.7 g/dL (2.4-3.5); Glucose 104 mg/dL (83-110); Potassium 3.6 mmol/L (3.5-5.1); Sodium 139 mmol/L (136-145)
[2023-03-09 06:36] LABS: Band 2 % (5-11); CellaVision Operator ID lab.abc; Eosinophils 10 % (0-10); Large Platelets 6.9 % (0-5); Lymphocytes 16 % (21-51); Metamyelocyte 2 % (0-0); Monocytes 10 % (0-10); Myelocyte 1 % (0-0); Neutrophil 55 % (42-75); Platelet Adequacy Comment Platelets Normal; RBC Morphology Within Normal Limits; Reactive Lymphocytes 4 % (0-10); Smudge Cells 10.8 %; Total Cell Count 102
[2023-03-09] MEDS ORDERED: Artificial Tear Sol 15 ML BOT EA EYE PRN (08:26)
[2023-03-09] MEDS: CO Q-10 CAPSULE 100 MG PO SCH (10:02)
[2023-03-09] MEDS: Venlafaxine 75 MG TAB PO SCH (10:02)
[2023-03-09] MEDS: Famotidine/PF 20 mg/2ml Vial SLOW IVP SCH (20:54)
[2023-03-09] MEDS: Tamsulosin HCl 0.4 MG CAP PO SCH (20:54)
[2023-03-10] MEDS ORDERED: traMADol HCl 50 MG TAB PO PRN (09:06)
[2023-03-10] MEDS: CO Q-10 CAPSULE 100 MG PO SCH (09:37)
[2023-03-10] MEDS: Venlafaxine 75 MG TAB PO SCH (11:39)
[2023-03-10 11:46] VITALS: BP 129/69; TEMP 98.1
== END 2023-03-10 14:30 | disposition home or self-care (01) | DRG 330 ==
LOC: ERS 14:02 → SURG B 16:49
PROVIDERS: ADMIT Student in an Organized Health Care Education/Training Program; ATTEND Internal Medicine
PROC: 0D9670Z Drainage of Stomach with Drainage Device, Via Natural or Artificial Opening (ICD-10-PCS; 2023-03-04)
PROC: 0DN80ZZ Release Small Intestine, Open Approach (ICD-10-PCS; principal; 2023-03-06)
PROC: 0DQE0ZZ Repair Large Intestine, Open Approach (ICD-10-PCS; 2023-03-06)
PROC: 0DNW4ZZ Release Peritoneum, Percutaneous Endoscopic Approach (ICD-10-PCS; 2023-03-06)
PROC: 3E0M05Z Introduction of Adhesion Barrier into Peritoneal Cavity, Open Approach (ICD-10-PCS; 2023-03-06)
DX: K56.50 Intestinal adhesions [bands], unspecified as to partial versus complete obstruction (principal); E87.1 Hypo-osmolality and hyponatremia; N17.9 Acute kidney failure, unspecified; K91.71 Accidental puncture and laceration of a digestive system organ or structure during a digestive system procedure; E87.6 Hypokalemia; D64.9 Anemia, unspecified; I10 Essential (primary) hypertension; N40.0 Benign prostatic hyperplasia without lower urinary tract symptoms; Z96.641 Presence of right artificial hip joint; F41.9 Anxiety disorder, unspecified; F32.A Depression, unspecified; E66.9 Obesity, unspecified; M19.90 Unspecified osteoarthritis, unspecified site; Z96.611 Presence of right artificial shoulder joint; Z96.612 Presence of left artificial shoulder joint; Y83.8 Other surgical procedures as the cause of abnormal reaction of the patient, or of later complication, without mention of misadventure at the time of the procedure; Z88.5 Allergy status to narcotic agent; Z88.8 Allergy status to other drugs, medicaments and biological substances; Z91.030 Bee allergy status; Z90.49 Acquired absence of other specified parts of digestive tract; Z87.891 Personal history of nicotine dependence; Z68.30 Body mass index [BMI] 30.0-30.9, adult; Z79.899 Other long term (current) drug therapy; Z79.82 Long term (current) use of aspirin; Z80.1 Family history of malignant neoplasm of trachea, bronchus and lung; R74.01 Elevation of levels of liver transaminase levels
CPT/HCPCS: 36415; 74018; 74177; 74250; 80048; 80053; 81001; 83605; 83690; 85025; 85060; 87040; 93005; 93010; 96365; 96367; 96375; C1776; J0171; J0696; J1100; J1170; J1885; J2370; J2405; J2704; J3010; J3480; J3490; P9045; Q9963; Q9967; S0020; S0028